=== PATIENT | male | born 1935 | race Caucasian/White ===

== ENCOUNTER 2017-06-04 13:04 | Emergency (ER) | payer BC ==
[~2017-06-04] VITALS: Ht 177.8 cm; Wt 101.6 kg
[~2017-06-04 13:04] MED LIST: COLL100 PO; GLUXR500 PO; IPRA14.73 IH; LOVA20TA2 PO; MAGN400O4 PO; METO-442 PO; NORCO5 PO; ZOLP12.52 PO; [UNRECOGNIZED DRUG - OTHER]
[2017-06-04 13:10] VITALS: BP_SYST 151
[2017-06-04 13:50] VITALS: BP_SYST 151
== END 2017-06-04 13:50 | disposition home or self-care (01) ==
LOC: SED 13:04
DX: R21 Rash and other nonspecific skin eruption (principal); J44.9 Chronic obstructive pulmonary disease, unspecified; E11.9 Type 2 diabetes mellitus without complications; I10 Essential (primary) hypertension; Z90.49 Acquired absence of other specified parts of digestive tract; Z90.89 Acquired absence of other organs; Z85.528 Personal history of other malignant neoplasm of kidney; Z88.0 Allergy status to penicillin; Z79.899 Other long term (current) drug therapy; Z90.5 Acquired absence of kidney; Z88.1 Allergy status to other antibiotic agents; Z87.891 Personal history of nicotine dependence
CPT/HCPCS: 99282